=== PATIENT | male | born 1935 | race African-American/Black ===

== ENCOUNTER 2018-10-18 14:20 | Inpatient (IN) | payer MEDICARE, OTHER ==
[~2018-10-18] VITALS: Ht 175.3 cm; Wt 85.3 kg
[2018-10-18] MEDS ORDERED: ONDANSETRON HCL 4MG/2ML INJ IV STA (14:38)
[2018-10-18] MEDS ORDERED: SODIUM CHLORIDE 0.9% 1,000 ML IV ONE (14:38)
[2018-10-18] MEDS ORDERED: ASPIRIN 325MG TABLET PO ONE (15:00)
[2018-10-18 15:04] LABS: BASOPHILS % 0.4 % (0.0-2.0); EOSINOPHILS % 0.2 % (0.0-5.0); HEMOGLOBIN. 16.7 g/dL (14.0-18.0); LYMPHOCYTES % 17.6 % (20.0-50.0); MEAN CORPUSCULAR HEMOGLOBIN 32.1 pg (28.0-32.0); MEAN PLATELET VOLUME 7.7 fl (7.4-10.4); NEUTROPHILS % 77.8 % (40.0-76.0); PLATELET 291 x1000/uL (130-400); RED BLOOD CELL COUNT 5.21 mill/uL (4.7-6.1); RED CELL DISTRIBUTION WIDTH 13.1 % (11.6-14.6)
[2018-10-18 15:09] LABS: PROTHROMBIN TIME 10.7 sec (9.6-11.0)
[2018-10-18 15:10] LABS: CHLORIDE 103 mEq/L (98-107)
[2018-10-18 15:15] LABS: ETHANOL BLOOD < 10 mg/dL
[2018-10-18 15:17] LABS: LDL CHOLESTEROL 106 mg/dL (5-100)
[2018-10-18] MEDS ORDERED: IOHEXOL-350 100 ML BOTTLE ONE (15:22)
[2018-10-18] MEDS ORDERED: HYDRALAZINE 20MG/ML VIAL IV ONE ×2 (15:30→17:15)
[2018-10-18] MEDS ORDERED: TRAMADOL 50MG TABLET PO PRN (17:15)
[2018-10-18] MEDS ORDERED: IPRATROPIUM/ALBUTEROL 0.5-3(2.5)MG/3ML NEB INH PRN (17:15)
[2018-10-18] MEDS ORDERED: CLONIDINE 0.2MG TABLET PO ONE (17:15)
[2018-10-18] MEDS ORDERED: GUAIFENESIN 200MG/10ML SUGAR FREE UDC PO PRN (17:15)
[2018-10-18] MEDS ORDERED: MAGNESIUM/ALUMINUM HYDROXIDE/SIMETHICONE 30ML UDC PO PRN (17:15)
[2018-10-18] MEDS ORDERED: NITROGLYCERIN 0.4MG TABLET SL SL PRN (17:15)
[2018-10-18 17:38] LABS: HDL CHOLESTEROL 75 mg/dL (40-59)
[2018-10-18] MEDS: ATORVASTATIN CALCIUM 10MG TABLET PO SCH (21:55)
[2018-10-18] MEDS: ONDANSETRON HCL 4MG/2ML INJ IV PRN (21:56)
[2018-10-18 22:12] VITALS: BP 158/63
[2018-10-18 23:14] LABS: CREATINE KINASE MB FRACTION 5.1 ng/mL (0.5-3.6)
[2018-10-18] MEDS ORDERED: AGGR MT (23:32)
[2018-10-18] MEDS ORDERED: LISI40TA4 MT (23:41)
[2018-10-18] MEDS ORDERED: DORZ10DR18 OP (23:41)
[2018-10-18] MEDS ORDERED: IBUP-2029 MT (23:41)
[2018-10-18] MEDS ORDERED: VALS1TAB80 MT (23:41)
[2018-10-18] MEDS ORDERED: ALPR-340 MT (23:41)
[2018-10-18] MEDS ORDERED: SIMV40TA5 MT (23:41)
[2018-10-18] MEDS ORDERED: NIFE60TA64 MT (23:41)
[2018-10-18] MEDS ORDERED: DEXT1TAB MT (23:41)
[2018-10-19] VITALS (13 sets, daily range): BP systolic 135–183; BP diastolic 71–98
[2018-10-19] MEDS: ONDANSETRON HCL 4MG/2ML INJ IV PRN (04:39)
[2018-10-19 06:07] LABS: CREATINE KINASE MB FRACTION 3.9 ng/mL (0.5-3.6)
[2018-10-19] MEDS ORDERED: ASPIRIN/DIPYRIDAMOLE 25MG/200MG CAPSULE SA PO SCH (09:00)
[2018-10-19] MEDS ORDERED: ASPIRIN 325MG EC TABLET PO SCH (09:00)
[2018-10-19] MEDS: CLOPIDOGREL 75MG TABLET PO SCH (09:44)
[2018-10-19] MEDS: LISINOPRIL 20MG TABLET PO SCH ×2 (09:45→20:07)
[2018-10-19] MEDS: DOCUSATE SODIUM 100MG CAPSULE PO PRN (09:46)
[2018-10-19] MEDS: FAMOTIDINE 20MG TABLET PO SCH (09:46)
[2018-10-19] MEDS: METOPROLOL TARTRATE 25MG TABLET PO SCH ×2 (09:46→20:08)
[2018-10-19] MEDS: ENOXAPARIN 40MG/0.4ML SYR SUBCUT SCH (09:46)
[2018-10-19 13:51] LABS: T4 FREE 1.26 ng/dL (0.76-1.46)
[2018-10-19 14:17] LABS: FOLIC ACID (FOLATE) SERUM 19.9 ng/mL (>5.38)
[2018-10-19 14:59] LABS: CLARITY URINE CLEAR (CLEAR); COLOR URINE AMBER (YELLOW); KETONES URINE TRACE (NEGATIVE); LEUKOCYTE ESTERASE URINE NEGATIVE (NEGATIVE); NITRITE URINE NEGATIVE (NEGATIVE); OCCULT BLOOD URINE NEGATIVE (NEGATIVE); PH URINE 5.5 (4.5-8.0); PROTEIN URINE 2+ (NEGATIVE)
[2018-10-19 15:10] LABS: *AMPHETAMINES SCREEN URINE NEGATIVE (NEGATIVE); *BARBITURATES SCREEN URINE NEGATIVE (NEGATIVE); *BENZODIAZEPINES SCREEN URINE PRESUMTIVE POSITIVE (NEGATIVE); *COCAINE SCREEN URINE NEGATIVE (NEGATIVE); METHADONE URINE SCREEN NEGATIVE (NEGATIVE); OPIATES URINE SCREEN NEGATIVE (NEGATIVE)
[2018-10-19 15:11] LABS: CANNABINOID URINE SCREEN NEGATIVE (NEGATIVE); PHENCYCLIDINE URINE SCREEN NEGATIVE (NEGATIVE)
[2018-10-19] MEDS: ACETAMINOPHEN 325MG TABLET PO PRN (18:25)
[2018-10-19] MEDS: ATORVASTATIN CALCIUM 10MG TABLET PO SCH (20:07)
[2018-10-20] VITALS (12 sets, daily range): BP systolic 161–181; BP diastolic 80–105
[2018-10-20] MEDS: ACETAMINOPHEN 325MG TABLET PO PRN ×2 (00:32→16:25)
[2018-10-20] MEDS: CLONIDINE 0.1MG TABLET PO PRN ×3 (03:12→23:19)
[2018-10-20] MEDS: CLOPIDOGREL 75MG TABLET PO SCH (07:50)
[2018-10-20] MEDS: LISINOPRIL 20MG TABLET PO SCH ×2 (07:50→21:12)
[2018-10-20] MEDS: METOPROLOL TARTRATE 25MG TABLET PO SCH ×2 (07:50→21:50)
[2018-10-20] MEDS: FAMOTIDINE 20MG TABLET PO SCH (07:51)
[2018-10-20] MEDS: ENOXAPARIN 40MG/0.4ML SYR SUBCUT SCH (07:51)
[2018-10-20] MEDS: AMLODIPINE 10MG TABLET PO SCH (11:12)
[2018-10-20] MEDS: ATORVASTATIN CALCIUM 10MG TABLET PO SCH (21:10)
[2018-10-21] VITALS (12 sets, daily range): BP systolic 132–193; BP diastolic 83–117
[2018-10-21] MEDS: DOCUSATE SODIUM 100MG CAPSULE PO PRN (08:44)
[2018-10-21] MEDS: LISINOPRIL 20MG TABLET PO SCH ×2 (08:44→21:31)
[2018-10-21] MEDS: FAMOTIDINE 20MG TABLET PO SCH (08:44)
[2018-10-21] MEDS: AMLODIPINE 10MG TABLET PO SCH (08:45)
[2018-10-21] MEDS: METOPROLOL TARTRATE 25MG TABLET PO SCH ×2 (08:45→22:00)
[2018-10-21] MEDS: ENOXAPARIN 40MG/0.4ML SYR SUBCUT SCH (08:46)
[2018-10-21] MEDS: ATORVASTATIN CALCIUM 10MG TABLET PO SCH (21:28)
[2018-10-22] VITALS: BP 168/92
[2018-10-22 02:00] VITALS: BP 130/70
[2018-10-22 04:00] VITALS: BP 145/73
[2018-10-22 06:00] VITALS: BP 179/101
[2018-10-22 08:00] VITALS: BP 189/107
[2018-10-22] MEDS: FAMOTIDINE 20MG TABLET PO SCH (09:25)
[2018-10-22] MEDS: LISINOPRIL 20MG TABLET PO SCH (09:26)
[2018-10-22] MEDS: METOPROLOL TARTRATE 25MG TABLET PO SCH (09:26)
[2018-10-22] MEDS: ENOXAPARIN 40MG/0.4ML SYR SUBCUT SCH (09:27)
[2018-10-22] MEDS: AMLODIPINE 10MG TABLET PO SCH (09:28)
[2018-10-22 10:00] VITALS: BP 169/96
[2018-10-22] MEDS ORDERED: METOPROLOL TARTRATE 25MG TABLET PO SCH (21:00)
== END 2018-10-22 16:50 | DRG 64 ==
LOC: ER 14:23 → 3WST 17:06 → EDBEDREQTM 17:09 → EDBEDREQ 17:09 → SUPCPDRO 18:15 → ENRESERV 20:50
PROVIDERS: ADMIT Internal Medicine; ATTEND Internal Medicine
DX: I63.9 Cerebral infarction, unspecified (principal); I21.4 Non-ST elevation (NSTEMI) myocardial infarction; G81.91 Hemiplegia, unspecified affecting right dominant side; G93.40 Encephalopathy, unspecified; E78.00 Pure hypercholesterolemia, unspecified; I10 Essential (primary) hypertension; I67.1 Cerebral aneurysm, nonruptured; E78.5 Hyperlipidemia, unspecified; E11.9 Type 2 diabetes mellitus without complications; I11.0 Hypertensive heart disease with heart failure; I25.5 Ischemic cardiomyopathy; N40.0 Benign prostatic hyperplasia without lower urinary tract symptoms; R13.10 Dysphagia, unspecified; R29.810 Facial weakness; R47.1 Dysarthria and anarthria; Z79.82 Long term (current) use of aspirin; Z79.899 Other long term (current) drug therapy; Z79.84 Long term (current) use of oral hypoglycemic drugs
CPT/HCPCS: 36415; 70496; 70498; 70544; 70551; 74022; 80061; 80305; 80320; 82550; 82553; 82607; 82746; 83036; 83718; 83721; 84439; 84443; 84478; 84481; 84484; 92610; 93005; 93306; 93880; 93970; 96374; 96375; 97112; 97116; 97163; 97166; 99285; J0360; J1650; J2405; J7030; Q9967; G0480

== ENCOUNTER 2018-10-22 17:00 | Inpatient (IN) | payer MEDICARE ==
[~2018-10-22] VITALS: Ht 175.3 cm; Wt 85.3 kg
[~2018-10-22 17:00] MED LIST: AGGR MT; ALPR-340 MT; DEXT1TAB MT; DORZ10DR18 OP; IBUP-2029 MT; LISI40TA4 MT; NIFE60TA64 MT; SIMV40TA5 MT; VALS1TAB80 MT
[2018-10-22] MEDS ORDERED: IPRATROPIUM/ALBUTEROL 0.5-3(2.5)MG/3ML NEB HHN PRN (18:15)
[2018-10-22] MEDS ORDERED: ONDANSETRON HCL 4MG TABLET PO PRN (18:15)
[2018-10-22] MEDS ORDERED: CLONIDINE 0.1MG TABLET PO PRN (18:15)
[2018-10-22] MEDS ORDERED: ACETAMINOPHEN 325MG TABLET PO PRN (18:15)
[2018-10-22] MEDS ORDERED: GUAIFENESIN 200MG/10ML SUGAR FREE UDC PO PRN (18:15)
[2018-10-22] MEDS ORDERED: MAGNESIUM/ALUMINUM HYDROXIDE/SIMETHICONE 30ML UDC PO PRN (18:15)
[2018-10-22] MEDS ORDERED: NITROGLYCERIN 0.4MG TABLET SL SL PRN (18:15)
[2018-10-22] MEDS ORDERED: TRAMADOL 50MG TABLET PO PRN (18:15)
[2018-10-22 18:24] VITALS: BP 163/100
[2018-10-22 20:00] VITALS: BP 163/87
[2018-10-22] MEDS: ATORVASTATIN CALCIUM 10MG TABLET PO SCH (23:10)
[2018-10-22] MEDS: LISINOPRIL 20MG TABLET PO SCH (23:11)
[2018-10-22] MEDS: METOPROLOL TARTRATE 25MG TABLET PO SCH (23:11)
[2018-10-23 06:18] LABS: BASOPHILS % 0.4 % (0.0-2.0); EOSINOPHILS % 3.1 % (0.0-5.0); HEMOGLOBIN. 13.6 g/dL (14.0-18.0); LYMPHOCYTES % 32.9 % (20.0-50.0); MEAN CORPUSCULAR HEMOGLOBIN 32.4 pg (28.0-32.0); MEAN CORPUSCULAR VOLUME 95.4 fL (80.0-94.0); MEAN PLATELET VOLUME 8.3 fl (7.4-10.4); MONOCYTES % 12.7 % (2.0-8.0); NEUTROPHILS % 50.9 % (40.0-76.0); PLATELET 227 x1000/uL (130-400); RED BLOOD CELL COUNT 4.19 mill/uL (4.7-6.1); RED CELL DISTRIBUTION WIDTH 12.8 % (11.6-14.6)
[2018-10-23 06:25] LABS: CHLORIDE 102 mEq/L (98-107)
[2018-10-23 07:45] VITALS: BP 182/98
[2018-10-23] MEDS: LISINOPRIL 20MG TABLET PO SCH ×2 (07:49→20:39)
[2018-10-23] MEDS: AMLODIPINE 10MG TABLET PO SCH (07:49)
[2018-10-23] MEDS: METOPROLOL TARTRATE 25MG TABLET PO SCH ×2 (07:51→20:39)
[2018-10-23] MEDS: DOCUSATE SODIUM 100MG CAPSULE PO SCH ×2 (08:02→16:55)
[2018-10-23] MEDS: FAMOTIDINE 20MG TABLET PO SCH (08:02)
[2018-10-23] MEDS: ENOXAPARIN 40MG/0.4ML SYR SUBCUT SCH (08:03)
[2018-10-23 08:05] VITALS: BP 182/98
[2018-10-23 08:51] VITALS: BP 180/99
[2018-10-23] MEDS: MINOXIDIL 2.5MG TABLET PO SCH ×2 (09:59→20:39)
[2018-10-23 10:27] VITALS: BP 151/80
[2018-10-23] MEDS ORDERED: LACTULOSE 20G/30ML UDC PO SCH (17:00)
[2018-10-23 20:00] VITALS: BP 160/98
[2018-10-23] MEDS: ATORVASTATIN CALCIUM 10MG TABLET PO SCH (20:39)
[2018-10-23] MEDS ORDERED: PNEUMOCOCCAL 23-VAL P-SAC VAC 0.5 ML IM ONE (20:45)
[2018-10-24 07:26] LABS: BASOPHILS % 0.4 % (0.0-2.0); HEMATOCRIT. 39.7 % (42.0-52.0); HEMOGLOBIN. 13.2 g/dL (14.0-18.0); LYMPHOCYTES % 37.7 % (20.0-50.0); MEAN CORPUSCULAR HEMOGLOBIN 31.9 pg (28.0-32.0); MEAN CORPUSCULAR VOLUME 96.1 fL (80.0-94.0); MEAN PLATELET VOLUME 8.2 fl (7.4-10.4); MONOCYTES % 13.2 % (2.0-8.0); NEUTROPHILS % 43.7 % (40.0-76.0); PLATELET 217 x1000/uL (130-400); RED BLOOD CELL COUNT 4.13 mill/uL (4.7-6.1); RED CELL DISTRIBUTION WIDTH 12.7 % (11.6-14.6)
[2018-10-24 08:00] VITALS: BP 177/63
[2018-10-24 08:00] LABS: PROSTRATE SPECIFIC AG TOTAL 0.3 ng/mL (0.0-4.0)
[2018-10-24 08:22] LABS: FOLIC ACID (FOLATE) SERUM 14.2 ng/mL (>5.38)
[2018-10-24] MEDS: DOCUSATE SODIUM 100MG CAPSULE PO SCH ×2 (08:33→17:15)
[2018-10-24] MEDS: METOPROLOL TARTRATE 25MG TABLET PO SCH ×2 (08:34→21:09)
[2018-10-24] MEDS: AMLODIPINE 10MG TABLET PO SCH (08:34)
[2018-10-24] MEDS: ENOXAPARIN 40MG/0.4ML SYR SUBCUT SCH (08:35)
[2018-10-24] MEDS: FAMOTIDINE 20MG TABLET PO SCH (08:38)
[2018-10-24] MEDS: LISINOPRIL 20MG TABLET PO SCH ×2 (09:00→22:24)
[2018-10-24 09:09] LABS: CHLORIDE 102 mEq/L (98-107)
[2018-10-24 09:30] LABS: TOTAL IRON BINDING CAPACITY 197 ug/dL (250-450)
[2018-10-24] MEDS: MINOXIDIL 2.5MG TABLET PO SCH ×2 (11:35→21:08)
[2018-10-24 20:00] VITALS: BP 154/89
[2018-10-24 21:05] VITALS: BP 154/89
[2018-10-24] MEDS: ATORVASTATIN CALCIUM 10MG TABLET PO SCH (21:08)
[2018-10-25 07:47] VITALS: BP 164/78
[2018-10-25] MEDS: ENOXAPARIN 40MG/0.4ML SYR SUBCUT SCH (09:33)
[2018-10-25] MEDS: METOPROLOL TARTRATE 25MG TABLET PO SCH ×2 (09:33→20:14)
[2018-10-25] MEDS: AMLODIPINE 10MG TABLET PO SCH (09:33)
[2018-10-25] MEDS: DOCUSATE SODIUM 100MG CAPSULE PO SCH ×2 (09:34→16:28)
[2018-10-25] MEDS: MINOXIDIL 2.5MG TABLET PO SCH ×2 (09:34→20:14)
[2018-10-25] MEDS: FAMOTIDINE 20MG TABLET PO SCH (09:34)
[2018-10-25] MEDS: LISINOPRIL 20MG TABLET PO SCH ×2 (09:34→20:14)
[2018-10-25] MEDS ORDERED: TRAMADOL 50MG TABLET PO PRN (12:15)
[2018-10-25 20:00] VITALS: BP 162/92
[2018-10-25] MEDS: ATORVASTATIN CALCIUM 10MG TABLET PO SCH (20:13)
[2018-10-25 22:25] VITALS: BP 145/75
[2018-10-26 08:04] VITALS: BP 165/84
[2018-10-26] MEDS: AMLODIPINE 10MG TABLET PO SCH (08:15)
[2018-10-26] MEDS: DOCUSATE SODIUM 100MG CAPSULE PO SCH ×2 (08:15→17:28)
[2018-10-26] MEDS: MINOXIDIL 2.5MG TABLET PO SCH ×2 (08:15→22:14)
[2018-10-26] MEDS: LISINOPRIL 20MG TABLET PO SCH ×2 (08:16→21:02)
[2018-10-26] MEDS: FAMOTIDINE 20MG TABLET PO SCH (08:16)
[2018-10-26] MEDS: METOPROLOL TARTRATE 25MG TABLET PO SCH ×2 (08:16→21:02)
[2018-10-26] MEDS: ENOXAPARIN 40MG/0.4ML SYR SUBCUT SCH (08:17)
[2018-10-26] MEDS: TIMOLOL MALEATE 0.5% OPHTH DROPS 5ML EACHEYE SCH ×2 (14:00→21:03)
[2018-10-26] MEDS ORDERED: POLYVINYL ALCOHOL OPHTH DROPS 15ML BOTHEYE PRN (14:00)
[2018-10-26 20:00] VITALS: BP 154/77
[2018-10-26] MEDS: ATORVASTATIN CALCIUM 10MG TABLET PO SCH (21:02)
[2018-10-27 02:00] VITALS: BP 136/70
[2018-10-27 06:42] LABS: BASOPHILS % 0.5 % (0.0-2.0); EOSINOPHILS % 7.4 % (0.0-5.0); HEMATOCRIT. 35.6 % (42.0-52.0); LYMPHOCYTES % 36.5 % (20.0-50.0); MEAN CORPUSCULAR HEMOGLOBIN 32.3 pg (28.0-32.0); MEAN CORPUSCULAR VOLUME 96.1 fL (80.0-94.0); MEAN PLATELET VOLUME 8.2 fl (7.4-10.4); MONOCYTES % 11.1 % (2.0-8.0); NEUTROPHILS % 44.5 % (40.0-76.0); PLATELET 239 x1000/uL (130-400); RED CELL DISTRIBUTION WIDTH 12.9 % (11.6-14.6)
[2018-10-27 07:05] LABS: CHLORIDE 106 mEq/L (98-107)
[2018-10-27 07:18] LABS: PHOSPHORUS 3.2 mg/dL (2.5-4.9)
[2018-10-27 07:29] VITALS: BP 187/95
[2018-10-27] MEDS: DOCUSATE SODIUM 100MG CAPSULE PO SCH ×2 (08:09→16:29)
[2018-10-27] MEDS: AMLODIPINE 10MG TABLET PO SCH (08:10)
[2018-10-27] MEDS: ENOXAPARIN 40MG/0.4ML SYR SUBCUT SCH (08:10)
[2018-10-27] MEDS: METOPROLOL TARTRATE 25MG TABLET PO SCH ×2 (08:10→20:50)
[2018-10-27] MEDS: TIMOLOL MALEATE 0.5% OPHTH DROPS 5ML EACHEYE SCH ×2 (08:10→20:50)
[2018-10-27] MEDS: FAMOTIDINE 20MG TABLET PO SCH (08:10)
[2018-10-27] MEDS: LISINOPRIL 20MG TABLET PO SCH ×2 (08:10→20:51)
[2018-10-27] MEDS: MINOXIDIL 2.5MG TABLET PO SCH ×2 (08:12→20:51)
[2018-10-27 09:21] VITALS: BP 145/86
[2018-10-27 20:00] VITALS: BP 159/85
[2018-10-27] MEDS: ATORVASTATIN CALCIUM 10MG TABLET PO SCH (20:50)
[2018-10-28 08:02] VITALS: BP 163/84
[2018-10-28] MEDS: ENOXAPARIN 40MG/0.4ML SYR SUBCUT SCH (08:11)
[2018-10-28] MEDS: TIMOLOL MALEATE 0.5% OPHTH DROPS 5ML EACHEYE SCH ×2 (08:11→21:11)
[2018-10-28] MEDS: DOCUSATE SODIUM 100MG CAPSULE PO SCH ×2 (08:11→16:27)
[2018-10-28] MEDS: FAMOTIDINE 20MG TABLET PO SCH (08:11)
[2018-10-28] MEDS: MINOXIDIL 2.5MG TABLET PO SCH ×2 (08:11→21:10)
[2018-10-28] MEDS: METOPROLOL TARTRATE 25MG TABLET PO SCH ×2 (08:12→21:11)
[2018-10-28] MEDS: AMLODIPINE 10MG TABLET PO SCH (08:12)
[2018-10-28] MEDS: LISINOPRIL 20MG TABLET PO SCH ×2 (08:12→21:11)
[2018-10-28 09:06] VITALS: BP 138/81
[2018-10-28 20:00] VITALS: BP 167/88
[2018-10-28] MEDS: ATORVASTATIN CALCIUM 10MG TABLET PO SCH (21:10)
[2018-10-29 08:28] VITALS: BP 182/94
[2018-10-29] MEDS: LISINOPRIL 20MG TABLET PO SCH ×2 (09:00→20:27)
[2018-10-29] MEDS: METOPROLOL TARTRATE 25MG TABLET PO SCH ×2 (09:01→20:28)
[2018-10-29] MEDS: DOCUSATE SODIUM 100MG CAPSULE PO SCH ×2 (09:01→18:06)
[2018-10-29] MEDS: MINOXIDIL 2.5MG TABLET PO SCH ×2 (09:01→20:28)
[2018-10-29] MEDS: FAMOTIDINE 20MG TABLET PO SCH (09:01)
[2018-10-29] MEDS: AMLODIPINE 10MG TABLET PO SCH (09:02)
[2018-10-29] MEDS: TIMOLOL MALEATE 0.5% OPHTH DROPS 5ML EACHEYE SCH ×2 (09:02→20:27)
[2018-10-29] MEDS: ENOXAPARIN 40MG/0.4ML SYR SUBCUT SCH (09:02)
[2018-10-29 20:00] VITALS: BP 161/81
[2018-10-29] MEDS: ATORVASTATIN CALCIUM 10MG TABLET PO SCH (20:27)
[2018-10-30 06:34] LABS: BASOPHILS % 1.2 % (0.0-2.0); EOSINOPHILS % 6.5 % (0.0-5.0); HEMATOCRIT. 36.7 % (42.0-52.0); HEMOGLOBIN. 12.5 g/dL (14.0-18.0); LYMPHOCYTES % 33.1 % (20.0-50.0); MEAN CORPUSCULAR HEMOGLOBIN 32.6 pg (28.0-32.0); MEAN CORPUSCULAR VOLUME 95.8 fL (80.0-94.0); MEAN PLATELET VOLUME 7.7 fl (7.4-10.4); MONOCYTES % 11.5 % (2.0-8.0); NEUTROPHILS % 47.7 % (40.0-76.0); PLATELET 285 x1000/uL (130-400); RED BLOOD CELL COUNT 3.83 mill/uL (4.7-6.1); RED CELL DISTRIBUTION WIDTH 12.6 % (11.6-14.6)
[2018-10-30 07:56] VITALS: BP 181/101
[2018-10-30] MEDS: MINOXIDIL 2.5MG TABLET PO SCH ×2 (08:28→21:08)
[2018-10-30] MEDS: AMLODIPINE 10MG TABLET PO SCH (08:28)
[2018-10-30] MEDS: FAMOTIDINE 20MG TABLET PO SCH (08:28)
[2018-10-30] MEDS: ENOXAPARIN 40MG/0.4ML SYR SUBCUT SCH (08:28)
[2018-10-30] MEDS: LISINOPRIL 20MG TABLET PO SCH ×2 (08:29→21:08)
[2018-10-30] MEDS: DOCUSATE SODIUM 100MG CAPSULE PO SCH ×2 (08:29→16:32)
[2018-10-30] MEDS: METOPROLOL TARTRATE 25MG TABLET PO SCH ×2 (08:29→21:08)
[2018-10-30] MEDS: TIMOLOL MALEATE 0.5% OPHTH DROPS 5ML EACHEYE SCH ×2 (08:31→21:08)
[2018-10-30 17:11] LABS: 25-HYDROXY VITAMIN D3 32 ng/mL (.)
[2018-10-30 20:00] VITALS: BP 170/90
[2018-10-30] MEDS: ATORVASTATIN CALCIUM 10MG TABLET PO SCH (21:08)
[2018-10-31 08:00] VITALS: BP 170/98
[2018-10-31] MEDS: TIMOLOL MALEATE 0.5% OPHTH DROPS 5ML EACHEYE SCH ×2 (08:41→20:21)
[2018-10-31] MEDS: METOPROLOL TARTRATE 25MG TABLET PO SCH ×2 (08:41→20:22)
[2018-10-31] MEDS: AMLODIPINE 10MG TABLET PO SCH (08:41)
[2018-10-31] MEDS: ENOXAPARIN 40MG/0.4ML SYR SUBCUT SCH (08:42)
[2018-10-31] MEDS: FAMOTIDINE 20MG TABLET PO SCH (08:42)
[2018-10-31] MEDS: MINOXIDIL 2.5MG TABLET PO SCH ×2 (08:42→20:21)
[2018-10-31] MEDS: DOCUSATE SODIUM 100MG CAPSULE PO SCH ×2 (08:42→16:53)
[2018-10-31] MEDS: LISINOPRIL 20MG TABLET PO SCH ×2 (09:00→20:22)
[2018-10-31 20:00] VITALS: BP 177/93
[2018-10-31] MEDS: ATORVASTATIN CALCIUM 10MG TABLET PO SCH (20:21)
[2018-11-01 00:30] VITALS: BP 159/86
[2018-11-01 08:01] VITALS: BP 176/92
[2018-11-01 08:05] VITALS: BP 176/92
[2018-11-01] MEDS: DOCUSATE SODIUM 100MG CAPSULE PO SCH (08:54)
[2018-11-01] MEDS: AMLODIPINE 10MG TABLET PO SCH (08:55)
[2018-11-01] MEDS: METOPROLOL TARTRATE 25MG TABLET PO SCH (08:55)
[2018-11-01] MEDS: FAMOTIDINE 20MG TABLET PO SCH (08:55)
[2018-11-01] MEDS: ENOXAPARIN 40MG/0.4ML SYR SUBCUT SCH (08:56)
[2018-11-01] MEDS: TIMOLOL MALEATE 0.5% OPHTH DROPS 5ML EACHEYE SCH (08:56)
[2018-11-01] MEDS: MINOXIDIL 2.5MG TABLET PO SCH (08:56)
[2018-11-01] MEDS: LISINOPRIL 20MG TABLET PO SCH (09:00)
[2018-11-01 11:01] VITALS: BP 129/68
== END 2018-11-01 13:30 | disposition home health service (06) | DRG 56 ==
PROVIDERS: ADMIT Physical Medicine & Rehabilitation Spinal Cord Injury Medicine; ATTEND Internal Medicine
DX: I69.351 Hemiplegia and hemiparesis following cerebral infarction affecting right dominant side (principal); I63.9 Cerebral infarction, unspecified; I21.4 Non-ST elevation (NSTEMI) myocardial infarction; I43 Cardiomyopathy in diseases classified elsewhere; I67.1 Cerebral aneurysm, nonruptured; E78.5 Hyperlipidemia, unspecified; E11.9 Type 2 diabetes mellitus without complications; E78.00 Pure hypercholesterolemia, unspecified; I25.5 Ischemic cardiomyopathy; N40.0 Benign prostatic hyperplasia without lower urinary tract symptoms; R47.1 Dysarthria and anarthria; R13.10 Dysphagia, unspecified; R53.81 Other malaise; R00.1 Bradycardia, unspecified; I25.10 Atherosclerotic heart disease of native coronary artery without angina pectoris; I11.9 Hypertensive heart disease without heart failure; R27.0 Ataxia, unspecified; I25.2 Old myocardial infarction; Z82.49 Family history of ischemic heart disease and other diseases of the circulatory system
CPT/HCPCS: 36415; 80048; 82306; 82607; 82728; 82746; 83540; 83550; 83735; 84100; 84134; 84153; 84443; 90732; 92523; 92610; 93970; 97110; 97112; 97116; 97163; 97166; 97530; 97535; A6261; J1650; J7620; G0103

== ENCOUNTER → 2021-01-31 | Outpatient (CLI) | payer MEDICARE ==
[~2021-01-31] MED LIST changes: -DEXT1TAB MT; -IBUP-2029 MT; -LISI40TA4 MT; +NIFE-32 MT; -NIFE60TA64 MT; +SIMV-46 MT; -SIMV40TA5 MT
== END | disposition home or self-care (01) ==
LOC: RAD 13:35
PROVIDERS: ATTEND Internal Medicine Hematology & Oncology
DX: D47.2 Monoclonal gammopathy (principal); M47.817 Spondylosis without myelopathy or radiculopathy, lumbosacral region; I51.7 Cardiomegaly; I71.9 Aortic aneurysm of unspecified site, without rupture
CPT/HCPCS: 77075

== ENCOUNTER 2023-07-11 19:03 | Emergency (ER) | payer MEDICARE ==
[~2023-07-11] VITALS: Ht 172.7 cm; Wt 69.0 kg
[2023-07-11] MEDS ORDERED: DOCU-138 MT (19:20)
[2023-07-11 19:25] VITALS: BP 138/86; PULSE 74; RESP 18; TEMP 98.1; O2SAT 100
== END 2023-07-11 19:54 | disposition home or self-care (01) ==
LOC: ER 19:16
DX: K59.00 Constipation, unspecified (principal); G89.29 Other chronic pain; C90.00 Multiple myeloma not having achieved remission; I10 Essential (primary) hypertension; Z79.899 Other long term (current) drug therapy
CPT/HCPCS: 99283